=== PATIENT | female | born 1965 | race Caucasian/White ===

== ENCOUNTER → 2017-04-25 | Outpatient (CLI) | payer OTHER ==
--- NOTE | 2017-04-26 12:13 | MAM ---
EXAM DESCRIPTION: 3D Screening BILATERAL CLINICAL HISTORY: 52 yearsFemaleSCREENING. No complaints. Mother with breast cancer. Postmenopausal. No HRT.. COMPARISON: Baseline study at this facility.. No prior reports available. TECHNIQUE: Bilateral CC and MLO projection full-field images, 3-D tomosynthesis digital mammographic technique. Also bilateral synthesized CC/ MLO full-field images. CAD not utilized. FINDINGS: The breast parenchymal density pattern is: Scattered areas of fibroglandular density. No skin thickening or nipple retraction bilateral solitary microcalcifications. Focal asymmetry at the 230 clock position of the posterior third of the left breast, approximately 13 cm from the nipple. No definite mass or abnormal calcifications. No focal, stellate mass or density, , and no suspicious microcalcifications bilaterally. No focal asymmetry in the right breast. IMPRESSION: BI-RADS CATEGORY: 0 - INCOMPLETE- Need additional imaging evaluation. FOLLOW-UP: Recall for additional imaging: Targeted left breast ultrasound of the lateral left breast, posterior third, in the region described above. Written communication concerning the FINDINGS and IMPRESSION will be mailed to the patient and referring health care provider. Electronically signed by: Bulmaro Mckeon MD 04/26/2017 12:12 PM CDT
== END ==
LOC: MAMMO 09:34
PROVIDERS: ATTEND Family Medicine
DX: Z12.31 Encounter for screening mammogram for malignant neoplasm of breast (principal)
CPT/HCPCS: 77063; G0202

== ENCOUNTER → 2017-05-23 | Outpatient (CLI) | payer OTHER ==
--- NOTE | 2017-05-23 14:42 | US ---
EXAM DESCRIPTION: Breast,Left CLINICAL HISTORY: 52 yearsFemaleABNORMAL MAMMO COMPARISON: Digital 3-D tomosynthesis mammogram left breast 04/25/2017. TECHNIQUE: Transcutaneous scanning of the left posterior lateral breast utilizing two-dimensional and Doppler modes. Scanning performed by the property field adjuster and Dr. Mckeon. FINDINGS: Small oval-shaped hypoechoic solid masses with echogenic centers, well-circumscribed crystal, parallel orientation and enhancing posterior features consistent with lymph nodes. Minimal vascularity. These are less than 5 mm in diameter. Vascular structures also noted. No discrete solid mass or cyst. No parenchymal edema or large calcifications. No abnormal Doppler findings. Homogeneous fatty tissues. IMPRESSION: BI-RADS CATEGORY: 2 - BENIGN FINDINGS. FOLLOW UP: Return to digital bilateral 3-D tomosynthesis screening, one year interval from March 2017. The findings and the follow-up plan were reviewed in person with the patient after the examination. Written communication explaining the IMPRESSION and follow-up, will be mailed to the patient and referring health care provider. According to the [employer], yearly mammograms are recommended starting at age 40 and continuing as long as a woman is in good health. Any breast change noted on a breast self-exam should be reported promptly to the patient's healthcare provider. Breast MRI is recommended for women with an approximately 20-25% or greater lifetime risk of breast cancer, including women with a strong family history of breast or ovarian cancer and women who have been treated for Hodgkin's disease. A negative mammographic report should not delay tissue diagnosis in patients with significant clinical history or physical findings. Extremely dense breast tissue limits the sensitivity of digital mammography. Electronically signed by: Bulmaro Mckoen MD 05/23/2017 2:40 PM CDT
== END ==
LOC: MAMMO 13:00
PROVIDERS: ATTEND Family Medicine
DX: R92.8 Other abnormal and inconclusive findings on diagnostic imaging of breast (principal)